=== PATIENT | female | born 1945 | race Caucasian/White ===

== ENCOUNTER 2017-01-22 14:03 | Emergency (ER) | payer MEDICARE ==
[2017-01-22] MEDS ORDERED: IPRATROPIUM/ALBUTEROL 3 ML VIAL NEB ONE (14:10)
[2017-01-22] MEDS ORDERED: methylPREDNISolone SODIUM SUC 125 MG/2 ML VIAL IV ONE (14:10)
--- NOTE | 2017-01-22 14:14 | ED.PDOC ---
History of Present Illness - General Chief Complaint: Respiratory Problem Time Seen by Provider: 01/22/17 14:09 Source: patient Exam Limitations: no limitations - History of Present Illness Initial Comments: Patient is a 71 yo F with COPD, oxygen dependent, who presents from home after her home health nurse noted that her oxygen saturations were in the 60-70s. The patient denies any symptoms including dyspnea or chest pain. Upon arrival, patient is saturating at 96% on 4L by NC. However, neither she nor her know how much oxygen she normally uses at home. No new cough or increased sputum production. No other complaints. Timing/Duration: unsure Severity: moderate Improving Factors: nothing Worsening Factors: nothing Associated Symptoms: denies symptoms Allergies/Adverse Reactions: Allergies NO KNOWN ALLERGY Allergy (Verified 01/22/17 14:35) Review of Systems - Review of Systems Constitutional: States: no symptoms reported EENTM: States: no symptoms reported Respiratory: States: see HPI Cardiology: States: no symptoms reported Gastrointestinal/Abdominal: States: no symptoms reported Genitourinary: States: no symptoms reported Musculoskeletal: States: no symptoms reported Skin: States: no symptoms reported Neurological: States: no symptoms reported Endocrine: States: no symptoms reported Hematologic/Lymphatic: States: no symptoms reported Physical Exam - Physical Exam General Appearance: Alert Ears, Nose, Throat: normal ENT inspection Neck: non-tender, full range of motion, supple Respiratory: lungs clear, other - distant breath sounds Cardiovascular/Chest: regular rate, rhythm Gastrointestinal/Abdominal: normal bowel sounds, non tender, soft Extremity: normal inspection, no pedal edema Neurologic: alert, normal mood/affect Skin Exam: normal color Lymphatic: no adenopathy Progress - Progress Progress: 01/22/17 14:15 Duonebs x one. Solumedrol 125 mg IV x one. oxygen by NC at 4L. 01/22/17 15:20 EKG showed S-T elevation in lead V3 but patient was moving quite a bit. Repeat EKG showed almost 1mm elevation in lead V3 but no reciprocal changes. No LBBB. ASA 324 mg po x one given. Plavix 300 mg po x one. Heparin 5000 IU IV bolus followed by 100 IU/hr. Atorvastatin 80 mg po x one. Troponin 0.23 BNP 3230. Signs of end organ damage include YANCY with Cr of 2.1 and T bili 3.0. CXR showed infiltrates in the lungs. Patient accepted to [facility] and transferred by helicopter. Possible STEMI vs cardiogenic shock vs. NSTEMI vs Severe COPD exac. Departure - Departure Clinical Impression: Myocardial infarction, Hypoxemia, Chronic obstructive pulmonary disease Disposition: Transfer to Hospital Condition: Fair Diet: other - NPO
[2017-01-22] MEDS ORDERED: ASPIRIN (CHEWABLE) 81 MG TAB PO ONE (14:25)
[2017-01-22 14:35] VITALS: TEMP 99.1
[2017-01-22] MEDS ORDERED: CLOPIDOGREL 75 MG TAB PO ONE (15:00)
[2017-01-22] MEDS ORDERED: HEPARIN SODIUM (PORCINE) 5,000 U/ML VIAL IV ONE (15:02)
[2017-01-22] MEDS ORDERED: ATORVASTATIN 20 MG TAB PO ONE (15:04)
[2017-01-22] MEDS ORDERED: HEPARIN PREMIX 500 ML IV SCH (15:15)
--- NOTE | 2017-01-22 15:15 | RAD ---
Single view of chest Reference: May 26, 2016 IMPRESSION: Cardiomegaly noted. Left lung is clear. Interval development of infiltrates likely representing pneumonia within the mid and right lower lobe. Follow-up study in six weeks is suggested to document resolution. Electronically signed by: Christiano Pickett MD 01/22/2017 3:14 PM CDT
[2017-01-24 07:55] VITALS: BP 95/46; O2SAT 90
== END 2017-01-22 15:42 | disposition short-term general hospital (02) ==
LOC: ER 14:03
DX: I21.3 ST elevation (STEMI) myocardial infarction of unspecified site (principal); J44.9 Chronic obstructive pulmonary disease, unspecified; R09.02 Hypoxemia; Z99.81 Dependence on supplemental oxygen
CPT/HCPCS: 36415; 71010; 80053; 82550; 82553; 83880; 84484; 85025; 93005; 94640; J1644; J2930; J7620

== ENCOUNTER 2019-10-04 11:50 | Emergency (ER) | payer MEDICARE, MEDICAID ==
--- NOTE | 2019-10-04 11:54 | ED.PDOC ---
History of Present Illness - General Chief Complaint: Respiratory Problem Time Seen by Provider: 10/04/19 11:54 Source: patient, correction records Exam Limitations: clinical condition, other Additional Information: dementia - History of Present Illness Initial Comments: 74-year-old female with history of COPD, CHF presents with marketing communications assistant from nursing facility for increase shortness of breath over 2 days. No fever, increasing productive cough. Is on breathing treatments at facility, but not currently steroids. No recent admissions to the hospital. Allergies/Adverse Reactions: Allergies NO KNOWN ALLERGY Allergy (Verified 01/22/17 14:35) Home Medications: Ambulatory Orders Albuterol Inhaler [Ventolin Hfa Inhaler] 2 puff INH Q4H PRN 10/04/19 Azithromycin [Zithromax Z-Loy] 250 mg PO DAILY #1 tab 10/04/19 Divalproex Sodium 125 mg PO BID 10/04/19 Donepezil Hydrochloride [Donepezil HCl] 10 mg PO BEDTIME 10/04/19 Escitalopram Oxalate [Lexapro] 5 mg PO BEDTIME 10/04/19 Fluticasone Propionate Hfa [Flovent Hfa] 44 mcg IN BID 10/04/19 Furosemide [Lasix] 20 mg PO BID 10/04/19 Ipratropium/Albuterol [Duoneb] 3 ml NEB QID 10/04/19 Memantine HCl [Namenda] 10 mg PO BID 10/04/19 Prednisone See Taper PO DAILY #14 tab 10/04/19 Review of Systems - Review of Systems Review of Systems: 10/04/19 12:09 General: Denies generalized weakness, fever, arthralgia/myalgia HEENT: Denies sore throat, rhinorrhea Cardiovascular: Denies chest pain, palpitations Respiratory: has SOB, cough Gastrointestinal: Denies abdominal pain, vomiting, diarrhea : Denies dysuria, frequency Musculoskeletal: Denies extremity pain, extremity swelling Integument: Denies rash, itching Neuro: Denies focal weakness or numbness Psych: Denies depression, hallucinations. Past Medical History (General) - Patient Medical History Hx Stroke: No Hx of COPD: Yes Hx Congestive Heart Failure: No Hx Hypertension: Yes Hx Diabetes: No - Vaccination History Hx Influenza Vaccination: No Hx Pneumococcal Vaccination: No - Social History Hx Tobacco Use: Yes Family Medical History - Family History Mother Family History: Unknown Living Status: Physical Exam - Physical Exam Comments: General Appearance: Patient is awake and alert. appears ill, uncomfortable. Skin: Warm and dry. No diaphoresis. No rash or other lesions. Head: Normocephalic/atraumatic. Eyes: PERRL, lids, conjunctiva and sclera unremarkable. EOMI intact. ENT: No nasal discharge. Oropharynx. Without erythema, exudate, lesions. Moist mucous membranes. Neck: Supple. No LAD. No tenderness. No JVD noted. Respiratory: speech dyspnea, tachypnea, coarse BS w scattered wheezing thruout. Cardiovascular: Regular rate. Heart sounds normal. No murmur. GI: Abdomen soft, non-distended and non-tender. No rebound/guarding. Bowel soun ds normal. Back: No tenderness Musculoskeletal: Extremities- Normal range of motion. No effusion, cyanosis, edema. Neurological: Alert. Mildly confused. No facial palsy. Speech clear. Gag intact. No motor deficit, str symmetric. No sensory deficit. Progress - Progress Progress: 10/04/19 12:10 arrives in mild resp distress, hx and exam concerning for COPD exacerb. screening labs, CXR, nebs, steroids ordered. will closely monitor, anticipate obs given current severity of symptoms 10/04/19 12:58 work of breathing has improved s/p nebs, steroid. labs gen reassuring, no metabolic derangement, neg trop/lactic acid. 10/04/19 13:21 pt feels much better. CXR w/out infiltrate, tachypnea has resolved. 97% on home 3L O2 NC. inflamm and cardiac markers negative. d/w family, will tx as COPD exac, trial of home obs. 10/04/19 13:26 Patient feels better. VS, exam remain reassuring. Labs, imaging are without acute abnormality. I have discussed findings, diff dx, plan of care, need for follow-up, and reasons to return to the ED. Safety Stop (Diagnostic Time-Out): Tachycardia: No Diagnostic Studies: Reviewed Diagnostic Certainty: moderate Patient/family feels safe with discharge: Yes - Results/Orders Results/Orders: Laboratory Tests 10/04/19 10/04/19 10/04/19 12:28 12:28 12:28 WBC 6.8 RBC 4.55 Hgb 13.1 Hct 40.6 MCV 89.2 MCH 28.8 MCHC 32.3 L RDW 14.1 Plt Count 176 MPV 8.3 Absolute Neuts (auto) 4.50 Absolute Lymphs (auto) 1.60 Absolute Monos (auto) 0.50 Absolute Eos (auto) 0.20 Absolute Basos (auto) 0.10 Neutrophils % 66.1 Lymphocytes % 23.0 Monocytes % 6.9 Eosinophils % 3.2 Basophils % 0.8 Sodium 140 Potassium 4.0 Chloride 90 L Carbon Dioxide 37 H Anion Gap 17.0 BUN 16 Creatinine 0.71 BUN/Creatinine Ratio 22.5 H Random Glucose 89 Serum Osmolality 280.1 Lactic Acid Calcium 9.2 Total Bilirubin 0.4 AST 19 ALT 15 Alkaline Phosphatase 62 Troponin I < 0.02 C-Reactive Protein 0.6 B-Natriuretic Peptide 31.5 Serum Total Protein 7.2 Albumin 3.9 Globulin 3.3 Albumin/Globulin Ratio 1.2 10/04/19 12:28 WBC RBC Hgb Hct MCV MCH MCHC RDW Plt Count MPV Absolute Neuts (auto) Absolute Lymphs (auto) Absolute Monos (auto) Absolute Eos (auto) Absolute Basos (auto) Neutrophils % Lymphocytes % Monocytes % Eosinophils % Basophils % Sodium Potassium Chloride Carbon Dioxide Anion Gap BUN Creatinine BUN/Creatinine Ratio Random Glucose Serum Osmolality Lactic Acid 1.5 Calcium Total Bilirubin AST ALT Alkaline Phosphatase Troponin I C-Reactive Protein B-Natriuretic Peptide Serum Total Protein Albumin Globulin Albumin/Globulin Ratio - EKG/XRAY/CT EKG: Sinus - 75, no ST T wave changes Comments: nl intervals, nl axis XRAY: chest - bibasilar opacities, no consolidation Departure - Departure Clinical Impression: COPD with exacerbation Time of Disposition: 13:31 Disposition: Discharge to SNF Condition: Good Departure Forms: ED Discharge - Pt. Copy, Patient Portal Self Enrollment Instructions: Exacerbation of COPD Activity: increase activity as tolerated Referrals: KENISHA RODRIGUEZ [Primary Care Provider] - 1-2 Weeks Home Medications: Ambulatory Orders Albuterol Inhaler [Ventolin Hfa Inhaler] 2 puff INH Q4H PRN 10/04/19 Azithromycin [Zithromax Z-Loy] 250 mg PO DAILY #1 tab 10/04/19 Divalproex Sodium 125 mg PO BID 10/04/19 Donepezil Hydrochloride [Donepezil HCl] 10 mg PO BEDTIME 10/04/19 Escitalopram Oxalate [Lexapro] 5 mg PO BEDTIME 10/04/19 Fluticasone Propionate Hfa [Flovent Hfa] 44 mcg IN BID 10/04/19 Furosemide [Lasix] 20 mg PO BID 10/04/19 Ipratropium/Albuterol [Duoneb] 3 ml NEB QID 10/04/19 Memantine HCl [Namenda] 10 mg PO BID 10/04/19 Prednisone See Taper PO DAILY #14 tab 10/04/19 Comments: Yan Summers MD Emergency Medicine #[id number]
[2019-10-04] MEDS ORDERED: IPRATROPIUM/ALBUTEROL 3 ML VIAL INH STA (12:00)
[2019-10-04] MEDS ORDERED: SODIUM CHLORIDE 0.9% (FLUSH) 10 ML SYG IV PRN (12:00)
[2019-10-04] MEDS ORDERED: predniSONE 20 MG TAB PO ONE (12:00)
[2019-10-04] MEDS ORDERED: IPRATROPIUM/ALBUTEROL 3 ML VIAL NEB ONE (12:04)
[2019-10-04 12:26] VITALS: O2SAT 97
--- NOTE | 2019-10-04 13:00 | RAD ---
Study: Single Frontal Radiograph of the Chest. Indication:COPD exacerbation Comparison: March 24, 2017 Impression: Cardiomegaly. Patchy bibasilar opacities noted as well tiny pleural effusions. Follow-up to resolution recommended. No pneumothorax. Osteopenia. If this is a new finding, DEXA scan recommended as well as evaluation for possible osteoporosis treatment. Electronically signed by: Phil Bunn MD 10/04/2019 12:58 PM [employer]
[2019-10-04 14:47] VITALS: BP 140/88; TEMP 97
== END 2019-10-04 14:47 ==
LOC: ER 11:50
DX: J44.1 Chronic obstructive pulmonary disease with (acute) exacerbation (principal); I10 Essential (primary) hypertension; I50.9 Heart failure, unspecified; Z87.891 Personal history of nicotine dependence; Z79.899 Other long term (current) drug therapy
CPT/HCPCS: 71045; 80053; 83605; 83880; 84484; 85025; 86140; 93005; 94640; 94760; J7512; J7620

== ENCOUNTER → 2019-11-16 | Outpatient (CLI) | payer MEDICARE, MEDICAID | LOC: RAD 19:16 | PROVIDERS: ATTEND Internal Medicine | DX: R30.0 Dysuria (principal) ==

== ENCOUNTER 2020-04-04 09:05 | Emergency (ER) | payer MEDICARE, MEDICAID ==
--- NOTE | 2020-04-04 09:29 | ED.PDOC ---
History of Present Illness - General Chief Complaint: Trauma Stated Complaint: R hip pain, possible rotation/shortening Time Seen by Provider: 04/04/20 09:26 Source: patient, EMS - History of Present Illness Initial Comments: 74 yo F with hx of COPD on hospice and continuous oxygen as well as dementia, oriented only to self at baseline, presents for presumed R hip injury. Pt had unwitnessed fall either Thursday or Thursday per EMS, she was doing well and at baseline however today nursing staff noticed she acting in pain with her R hip and it was shortened and externally rotated. Pt is not on anticoagulation. She has been acting at her baseline otherwise. Limited history otherwise 2/2 dementia. Pt is DNR/DNI. Allergies/Adverse Reactions: Allergies NO KNOWN ALLERGY Allergy (Verified 04/04/20 09:31) Home Medications: Ambulatory Orders Albuterol Inhaler [Ventolin Hfa Inhaler] 2 puff INH Q4H PRN 10/04/19 Donepezil Hydrochloride [Donepezil HCl] 10 mg PO BEDTIME 10/04/19 Escitalopram Oxalate [Lexapro] 5 mg PO BEDTIME 10/04/19 Fluticasone Propionate Hfa [Flovent Hfa] 44 mcg IN BID 10/04/19 Furosemide [Lasix] 20 mg PO BID 10/04/19 Ipratropium/Albuterol [Duoneb] 3 ml NEB QID 10/04/19 Memantine HCl [Namenda] 10 mg PO BID 10/04/19 Ascorbic Acid [Vitamin C] 500 mg PO DAILY 04/04/20 Divalproex Sodium [Divalproex Sodium Dr] 125 mg PO DAILY 04/04/20 Morphine 20Mg/ml Ud [Roxanol] 10 mg PO Q1H PRN 04/04/20 Review of Systems - Review of Systems Unable to Obtain Due To: dementia Past Medical History (General) - Patient Medical History Hx Stroke: No Hx Dementia: Yes Hx of COPD: Yes Hx Congestive Heart Failure: No Hx Hypertension: Yes Hx Diabetes: No - Vaccination History Hx Influenza Vaccination: No Hx Pneumococcal Vaccination: No - Social History Hx Tobacco Use: Yes Family Medical History - Family History Mother Family History: Unknown Living Status: Physical Exam - Physical Exam General Appearance: Alert, Other - Elderly, frail, NC in mouth Eye Exam: bilateral normal Ears, Nose, Throat: normal ENT inspection - except for dry mucous membranes, likely from oxygen use, other - Head is atraumtic Neck: non-tender, full range of motion, supple, normal inspection Respiratory: chest non-tender, other - Clear BS, snoring respirations in RLL Cardiovascular/Chest: normal peripheral pulses, regular rate, rhythm, no edema, no gallop, no JVD, no murmur Peripheral Pulses: radial,right: 2+, radial,left: 2+, dorsalis pedis,right: 1+, dorsalis pedis,left: 1+ Gastrointestinal/Abdominal: normal bowel sounds, non tender, soft, no organomegaly, no pulsatile mass Back Exam: normal inspection, no CVA tenderness, no vertebral tenderness Extremity: normal capillary refill, other - L knee with swelling and healing ecchymosis, deminished ROM to LLE, no TTP. RLE short and externally rotated, decreased ROM, R hip TTP. FROM of BUE without deformity, swelling, signs of injury. Neurologic: no motor/sensory deficits, alert Skin Exam: normal color, warm/dry Progress - Progress Progress: 04/04/20 11:[address] Yeager, will review XR. Requests CIRCUIT [employer] CLERK and hospitalist consult to see if able to clear for possible surgery. Despite efforts, have not been able to get a hold of the at this time. Hospice has been notified. 04/04/20 11:29 Discussed with Nando De La Garza, midlevel for admissions, states he would not clear pt for surgery however will discuss with TRACEY Goodson and give me a call back. 04/04/20 11:33 UTI noted on UA, will obtain lactic acid, afebrile and no leukocytosis. Will give rocpehin. 04/04/20 11:58 Discussed with Nando, who has also discussed with Hamzah. States they may be able to do a spinal block but if needed, will have to intubate and the pt will need to be a full code for surgery. We will need to discuss with family, at this time we are still unable to reach . Hamzah will also discuss with Dr. Yeager. 04/04/20 12:56 Lactic acid wnl. Still unable to get in touch with family. 04/04/20 13:17 Discussed with Nando and updated Dr. Yeager. Will try and have hospice get in touch with and will see if lives in town and if it is possible to have the lean coach locate him. 04/04/20 14:24 at bedside. Confirms DNR/DNI, does not want a full code. Would be open to surgery however. Left message with Dr. Yeager, awaiting call back. Discussed with Nando, he will discuss with Dr. Yeager and call back with recommendations. 04/04/20 15:16 Still awaiting call back. 04/04/20 15:44 Nando at bedside. 04/04/20 16:00 Nando recommends transfer to facility with ICU capabilities as likely will need ICU care after surgery. Pt's would like to proceed with surgery, is okay with intubation, however does not want any CPR. Subsequently discussed with Dr. Brown in [place], accepts pt for transfer. Mary Jane Coffman MD Emergency Medicine Physician Billing Number [id number] - Results/Orders Results/Orders: 04/04/20 10:43 blanca [Catheter:Blanca] QSHIFT 04/04/20 10:45 Urine Culture Stat EKG STAT 04/04/20 11:35 cefTRIAXone SODIUM [Rocephin] 1 gm Sodium Chl 0.9% 50Ml Min-Bag+ [NS 50ml MINI-BAG+] 50 ml IVPB ONCE Laboratory Results - last 24 hr 04/04/20 04/04/20 04/04/20 10:08 10:08 10:08 WBC 10.1 RBC 5.06 Hgb 13.6 Hct 43.0 MCV 85.0 MCH 27.0 MCHC 31.7 L RDW 15.3 H Plt Count 180 MPV 7.9 Absolute Neuts (auto) 8.80 H Absolute Lymphs (auto) 0.60 L Absolute Monos (auto) 0.60 Absolute Eos (auto) 0.10 Absolute Basos (auto) 0.00 Neutrophils % 87.4 H Lymphocytes % 5.8 L Monocytes % 5.5 Eosinophils % 0.8 L Basophils % 0.5 Sodium 144 Potassium 3.4 L Chloride 97 L Carbon Dioxide 39 H Anion Gap 11.4 L BUN 20 H Creatinine 0.73 BUN/Creatinine Ratio 27.4 H Random Glucose 129 H Serum Osmolality 291.1 Calcium 9.0 Troponin I < 0.02 B-Natriuretic Peptide Urine Color Urine Appearance Urine pH Ur Specific Arco Urine Protein Urine Glucose (UA) Urine Ketones Urine Blood Urine Nitrite Urine Bilirubin Urine Urobilinogen Ur Leukocyte Esterase Urine RBC Urine WBC Ur Epithelial Cells Urine Bacteria 04/04/20 04/04/20 10:08 10:45 WBC RBC Hgb Hct MCV MCH MCHC RDW Plt Count MPV Absolute Neuts (auto) Absolute Lymphs (auto) Absolute Monos (auto) Absolute Eos (auto) Absolute Basos (auto) Neutrophils % Lymphocytes % Monocytes % Eosinophils % Basophils % Sodium Potassium Chloride Carbon Dioxide Anion Gap BUN Creatinine BUN/Creatinine Ratio Random Glucose Serum Osmolality Calcium Troponin I B-Natriuretic Peptide 29.5 Urine Color Dukes H Urine Appearance Cloudy Urine pH 6.0 Ur Specific Arco >= 1.030 Urine Protein 30 Urine Glucose (UA) Negative Urine Ketones Negative Urine Blood Small H Urine Nitrite Positive H Urine Bilirubin Small H Urine Urobilinogen 4.0 H Ur Leukocyte Esterase Negative Urine RBC 0-1 Urine WBC 0-1 Ur Epithelial Cells 5-10 Urine Bacteria 4+ H Left hip: EXAM DESCRIPTION: Hip,Left 2 Views CLINICAL HISTORY: pain COMPARISON: April 04, 2020 TECHNIQUE: Two views of the pelvis to include both hips FINDINGS: Two views of the pelvis demonstrate extensive vascular calcification. The bony pelvic ring appears intact. The left hip appears intact. Right hip demonstrates intertrochanteric fracture of the hip with varus deformity and foreshortening. A t least mild fragmentation at the fracture point is evident. Superior migration of the greater trochanter is evident. Fracture line appears to extend into the region of the lesser trochanter. IMPRESSION: Intact bony pelvis and left hip with intertrochanteric fracture of the right hip with varus deformity. Electronically signed by: Asaf Ricci MD 04/04/2020 10:09 AM [employer] R hip: EXAM DESCRIPTION: Hip,Right 2 Views CLINICAL HISTORY: 74 years Female, pain COMPARISON: None available. FINDINGS: The visualized bones are poorly mineralized. Severely comminuted intertrochanteric fracture of the right femur with impaction of the fracture fragments. The right hip joint appears intact. The soft tissues appear grossly unremarkable. IMPRESSION: Severely comminuted intertrochanteric fracture of the right femur with impaction of the fracture fragments. Electronically signed by: Brenda Ramirez MD 04/04/2020 10:07 AM [employer] L knee: EXAM DESCRIPTION: Knee,Left Complete CLINICAL HISTORY: 74 years Female, pain TECHNIQUE: 3 views of the left knee were performed. COMPARISON: None available. FINDINGS: The visualized bones appear poorly mineralized. No acute fracture or dislocation. Mild tricompartmental osteoarthritis with no significant joint effusion. The soft tissues appear grossly unremarkable. 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 Electronically signed by: Brenda Ramirez MD 04/04/2020 10:[address] head: EXAM DESCRIPTION: Head CLINICAL HISTORY: fall COMPARISON: None available TECHNIQUE: Non contrast cranial CT This exam was performed according to our departmental dose-optimization program, which includes automated exposure control, adjustment of the mA and/or kV according to patient size and/or use of iterative reconstruction technique. FINDINGS: Moderate ventriculomegaly and prominence of the cortical sulci and sylvian fissures with periventricular white matter changes of aging and small vessel disease noted. There is no hemorrhage or mass or subdural hematoma. No acute intracranial injury or mass effect or midline shift noted. Moderate age-related white matter changes as noted above are present bilaterally. The calvarium is unremarkable. No fracture or deformity noted. The visualized paranasal sinuses and the mastoids are clear. IMPRESSION: 1. Moderately advanced age-related atrophic changes and microvascular white matter changes with no acute intracranial injury noted. Electronically signed by: Asaf Ricci MD 04/04/2020 10:36 AM CDT CXR: EXAM DESCRIPTION: Chest,1 View CLINICAL HISTORY: 74 years Female, fall COMPARISON: October 04, 2019 TECHNIQUE: AP portable chest. FINDINGS: Cardiac size is in the upper range of normal allowing for portable technique with a calcified tortuous aortic arch and descending aorta. Vascularity is slightly more prominent with slightly coarsened interstitial markings. Compensated or borderline interstitial vascular congestion should be considered. There is no alveolar pulmonary edema or basilar pleural effusions. No dense lobar or segmental consolidation noted. No pneumothorax or hemothorax or bony abnormality evident. IMPRESSION: Slightly more prominent bronchovascular markings and interstitial markings in both lung sauceda suggesting borderline vascular prominence without overt alveolar edema or congestive failure. No acute injury noted. Vital Signs - 24 hr 04/04/20 04/04/20 04/04/20 09:05 09:19 10:43 Temperature 99.6 F 99.5 F Pulse Rate [ 115 H 115 H 84 Pulse ox] Respiratory 22 22 22 Rate Blood Pressure 119/82 114/80 [R brachial] O2 Sat by Pulse 90 L 91 L Oximetry 04/04/20 04/04/20 04/04/20 11:30 12:00 13:00 Temperature 99.5 F Pulse Rate [ 79 113 H 85 Pulse ox] Respiratory 22 20 20 Rate Blood Pressure 96/69 110/82 104/79 [R brachial] O2 Sat by Pulse 93 L 93 L 92 L Oximetry 04/04/20 04/04/20 04/04/20 14:00 15:00 16:00 Temperature 99.0 F 99.0 F 98.9 F Pulse Rate [ 85 92 H 84 Pulse ox] Respiratory 20 18 22 Rate Blood Pressure 99/78 118/80 114/78 [R brachial] O2 Sat by Pulse 92 L 91 L 90 L Oximetry 04/04/20 04/04/20 04/04/20 17:00 17:30 18:15 Temperature 98.9 F 99.0 F 99.0 F Pulse Rate [ 85 84 92 H Pulse ox] Respiratory 22 20 20 Rate Blood Pressure 118/81 119/72 119/72 [R brachial] O2 Sat by Pulse 90 L 92 L 92 L Oximetry - EKG/XRAY/CT EKG: Sinus, nonspecific ST T wave Chg Comments: Rate of 87, LAE, artifact Departure - Departure Clinical Impression: Acute cystitis without hematuria Intertrochanteric fracture Qualifiers: Encounter type: initial encounter Fracture type: closed Fracture alignment: displaced Laterality: right Qualified Code(s): S72.141A - Displaced intertrochanteric fracture of right femur, initial encounter for closed fracture Dementia Qualifiers: Dementia type: unspecified type Dementia behavioral disturbance: without behavioral disturbance Qualified Code(s): F03.90 - Unspecified dementia without behavioral disturbance Time of Disposition: 16:00 Disposition: Transfer to Hospital Condition: Fair Home Medications: Ambulatory Orders Albuterol Inhaler [Ventolin Hfa Inhaler] 2 puff INH Q4H PRN 10/04/19 Donepezil Hydrochloride [Donepezil HCl] 10 mg PO BEDTIME 10/04/19 Escitalopram Oxalate [Lexapro] 5 mg PO BEDTIME 10/04/19 Fluticasone Propionate Hfa [Flovent Hfa] 44 mcg IN BID 10/04/19 Furosemide [Lasix] 20 mg PO BID 10/04/19 Ipratropium/Albuterol [Duoneb] 3 ml NEB QID 10/04/19 Memantine HCl [Namenda] 10 mg PO BID 10/04/19 Ascorbic Acid [Vitamin C] 500 mg PO DAILY 04/04/20 Divalproex Sodium [Divalproex Sodium Dr] 125 mg PO DAILY 04/04/20 Morphine 20Mg/ml Ud [Roxanol] 10 mg PO Q1H PRN 04/04/20
--- NOTE | 2020-04-04 10:08 | RAD ---
EXAM DESCRIPTION: Hip,Right 2 Views CLINICAL HISTORY: 74 years Female, pain COMPARISON: None available. FINDINGS: The visualized bones are poorly mineralized. Severely comminuted intertrochanteric fracture of the right femur with impaction of the fracture fragments. The right hip joint appears intact. The soft tissues appear grossly unremarkable. IMPRESSION: Severely comminuted intertrochanteric fracture of the right femur with impaction of the fracture fragments. Electronically signed by: Brenda Ramirez MD 04/04/2020 10:07 AM CDT
--- NOTE | 2020-04-04 10:09 | RAD ---
EXAM DESCRIPTION: Knee,Left Complete CLINICAL HISTORY: 74 years Female, pain TECHNIQUE: 3 views of the left knee were performed. COMPARISON: None available. FINDINGS: The visualized bones appear poorly mineralized. No acute fracture or dislocation. Mild tricompartmental osteoarthritis with no significant joint effusion. The soft tissues appear grossly unremarkable. 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 Electronically signed by: Brenda Ramirez MD 04/04/2020 10:07 AM CDT
--- NOTE | 2020-04-04 10:10 | RAD ---
EXAM DESCRIPTION: Hip,Left 2 Views CLINICAL HISTORY: pain COMPARISON: April 04, 2020 TECHNIQUE: Two views of the pelvis to include both hips FINDINGS: Two views of the pelvis demonstrate extensive vascular calcification. The bony pelvic ring appears intact. The left hip appears intact. Right hip demonstrates intertrochanteric fracture of the hip with varus deformity and foreshortening. At least mild fragmentation at the fracture point is evident. Superior migration of the greater trochanter is evident. Fracture line appears to extend into the region of the lesser trochanter. IMPRESSION: Intact bony pelvis and left hip with intertrochanteric fracture of the right hip with varus deformity. Electronically signed by: Asaf Ricci MD 04/04/2020 10:09 AM CDT
--- NOTE | 2020-04-04 10:37 | CT ---
EXAM DESCRIPTION: Head CLINICAL HISTORY: fall COMPARISON: None available TECHNIQUE: Non contrast cranial CT This exam was performed according to our departmental dose-optimization program, which includes automated exposure control, adjustment of the mA and/or kV according to patient size and/or use of iterative reconstruction technique. FINDINGS: Moderate ventriculomegaly and prominence of the cortical sulci and sylvian fissures with periventricular white matter changes of aging and small vessel disease noted. There is no hemorrhage or mass or subdural hematoma. No acute intracranial injury or mass effect or midline shift noted. Moderate age-related white matter changes as noted above are present bilaterally. The calvarium is unremarkable. No fracture or deformity noted. The visualized paranasal sinuses and the mastoids are clear. IMPRESSION: 1. Moderately advanced age-related atrophic changes and microvascular white matter changes with no acute intracranial injury noted. Electronically signed by: Asaf Ricci MD 04/04/2020 10:36 AM CDT
--- NOTE | 2020-04-04 10:40 | RAD ---
EXAM DESCRIPTION: Chest,1 View CLINICAL HISTORY: 74 years Female, fall COMPARISON: October 04, 2019 TECHNIQUE: AP portable chest. FINDINGS: Cardiac size is in the upper range of normal allowing for portable technique with a calcified tortuous aortic arch and descending aorta. Vascularity is slightly more prominent with slightly coarsened interstitial markings. Compensated or borderline interstitial vascular congestion should be considered. There is no alveolar pulmonary edema or basilar pleural effusions. No dense lobar or segmental consolidation noted. No pneumothorax or hemothorax or bony abnormality evident. IMPRESSION: Slightly more prominent bronchovascular markings and interstitial markings in both lung sauceda suggesting borderline vascular prominence without overt alveolar edema or congestive failure. No acute injury noted. Electronically signed by: Asaf Ricci MD 04/04/2020 10:38 AM CDT
[2020-04-04] MEDS: cefTRIAXone SODIUM 1 GM in SODIUM CHL 0.9% 50ML MIN-BAG+ 50 ML IVPB ONE (11:54)
[2020-04-04] MEDS: IPRATROPIUM/ALBUTEROL 3 ML VIAL NEB ONE (13:08)
[2020-04-04 14:02] VITALS: TEMP 99
[2020-04-04 17:46] VITALS: BP 119/72; O2SAT 92
== END 2020-04-04 17:58 | disposition short-term general hospital (02) ==
LOC: ER 09:05
DX: S72.141A Displaced intertrochanteric fracture of right femur, initial encounter for closed fracture (principal); N30.00 Acute cystitis without hematuria; I10 Essential (primary) hypertension; J44.9 Chronic obstructive pulmonary disease, unspecified; F03.90 Unspecified dementia, unspecified severity, without behavioral disturbance, psychotic disturbance, mood disturbance, and anxiety; Z87.891 Personal history of nicotine dependence; Z99.81 Dependence on supplemental oxygen; X58.XXXA Exposure to other specified factors, initial encounter; Y92.9 Unspecified place or not applicable
CPT/HCPCS: 36415; 70450; 71045; 73502; 73562; 80048; 81001; 83605; 83880; 84484; 85025; 87086; 93005; J0696; J7050; J7620